=== PATIENT | female | born 1960 | race Caucasian/White ===

== ENCOUNTER 2017-03-11 12:44 | Day surgery (SDC) | payer OTHER ==
[2017-03-11 13:44] VITALS: BP 139/88; PULSE 61; RESP 18; TEMP 97; O2SAT 99
[2017-03-11 14:35] VITALS: BP 140/81; PULSE 64; RESP 16; TEMP 97.9; O2SAT 96
[2017-03-11 14:50] VITALS: BP 148/78; PULSE 58; RESP 16; O2SAT 95
[2017-03-11 15:00] VITALS: BP 136/78; PULSE 60; RESP 16; O2SAT 96
[2017-03-11] MEDS ORDERED: LIDOCAINE HCL 1% PF 30 ML VIAL ONE (15:25)
--- NOTE | 2017-03-11 16:30 | RADRPT ---
EXAM DATE/TIME: 03/11/2017 13:14 [place] COMPARISON: No previous studies available for comparison. EXTERNAL COMPARISON: [facility], US Thyroid , Feb 18 2017. [facility], [place] Thyroid, March 22 2017. [facility], US Thyroid, June 07 2012. INDICATIONS : Right thyroid nodule. MEDICAL HISTORY : Hypertension. High cholestrol. SURGICAL HISTORY : None. ENCOUNTER: Initial ACUITY: 1 month PAIN SCORE: 2/10 LOCATION: Right neck ORGAN: Right thyroid lobe SPECIMENS: Four fine needle aspirate(s) submitted for pathologic evaluation. DEVICE: 22 gauge needle Post procedure scanning reveals no hematoma or other complication. The possibility does exist that the tissue obtained will be non-diagnostic. If the sample is non-ian gnostic a repeat biopsy or surgical biopsy may need to be performed. TECHNIQUE: 1. Ultrasound guidance for needle biopsy. 2. Needle biopsy. The risks, benefits, and alternatives to ultrasound guided needle biopsy were explained to the patien t in detail including the risk of bleeding and infection. Written and verbal informed consent was ob tained. With the patient on the ultrasound table, images were obtained. There is an ovoid mostly solid nodul e in the lower pole the right thyroid gland measuring approximately 3.4 x 1.8 x 3.0 cm. Overlying ski n was prepped and draped in the usual sterile fashion and Lidocaine was utilized as a local anestheti c. A needle was advanced into the identified target and the number of specimens as above obtained and damico bmitted for pathologic evaluation. The patient tolerated the procedure well and left the ultrasound suite in stable condition. CONCLUSION: Uncomplicated ultrasound guided needle biopsy of a right thyroid nodule. Rogers Ruiz MD on March 11, 2017 at 16:17 Board Certified Radiologist. This report was verified electronically.
== END 2017-03-11 15:00 | disposition home or self-care (01) ==
LOC: HRAD 12:44 → HRIP 12:51 → HRAD 15:00
PROVIDERS: ATTEND Otolaryngology Otolaryngology/Facial Plastic Surgery
DX: E04.1 Nontoxic single thyroid nodule (principal); I10 Essential (primary) hypertension; E78.00 Pure hypercholesterolemia, unspecified; Z88.0 Allergy status to penicillin; Z88.8 Allergy status to other drugs, medicaments and biological substances
CPT/HCPCS: 10022; 76942; 88172; 88173